=== PATIENT | female | born 1970 | race Caucasian/White ===

== ENCOUNTER → 2016-06-30 | Outpatient (CLI) | payer OTHER ==
--- NOTE | 2016-06-30 12:51 | MAMMOGRAPHY REPORT ---
BILATERAL DIGITAL SCREENING MAMMOGRAM TOMOSYNTHESIS WITH CAD: 06/30/2016 CLINICAL HISTORY: Routine screening. Patient has no complaints. TECHNIQUE: Breast tomosynthesis in addition to standard 2D mammography was performed. Current study was also evaluated with a Computer Aided Detection (CAD) system. COMPARISON: Comparison is made to exams dated: 06/28/2015 mammogram, 08/17/2014 mammogram, 08/11/2013 m ammogram, 08/09/2012 mammogram, 08/08/2011 mammogram, and 08/23/2009 mammogram - [facility] nt. BREAST COMPOSITION: The tissue of both breasts is heterogeneously dense, which may obscure small ma sses. FINDINGS: No suspicious masses, calcifications, or areas of architectural distortion are noted in e ither breast. There has been no significant interval change compared to prior exams. IMPRESSION: ACR BI-RADS CATEGORY 1: NEGATIVE There is no mammographic evidence of malignancy. A 1 year screening mammogram is recommended. The p atient will receive written notification of the results. Approximately 10% of breast cancers are not detected with mammography. A negative mammographic repor t should not delay biopsy if a clinically suggestive mass is present. Jennifer Wu M.D. /:06/30/2016 12:13:26 Jumpb[employer] Collar Baster: Demond DISLA(R)(M), [facility] letter sent: Normal 1/2 BI-RADS Code: ACR BI-RADS Category 1: Negative
== END | disposition home or self-care (01) ==
LOC: C.MAMM 09:26
PROVIDERS: ATTEND Obstetrics & Gynecology
DX: Z12.31 Encounter for screening mammogram for malignant neoplasm of breast (principal)

== ENCOUNTER → 2016-07-04 | Outpatient (CLI) | payer OTHER | END | disposition home or self-care (01) | LOC: C.PAPS 10:00 | PROVIDERS: ATTEND Obstetrics & Gynecology | DX: Z01.419 Encounter for gynecological examination (general) (routine) without abnormal findings (principal) ==

== ENCOUNTER → 2016-09-15 | Outpatient (CLI) | payer OTHER | END | disposition home or self-care (01) | LOC: C.PATHSPEC 14:51 | PROVIDERS: ATTEND Obstetrics & Gynecology | DX: N90.89 Other specified noninflammatory disorders of vulva and perineum (principal) ==

== ENCOUNTER → 2017-06-25 | Outpatient (CLI) | payer OTHER ==
[2017-06-25 13:05] LABS: HEMATOCRIT 40.2 % (37-47); HEMOGLOBIN 13.5 g/dL (12.0-16.0); MEAN CELL VOLUME 88.9 fL (80-100); MEAN CORPUSCULAR HEMOGLOBIN 29.9 pg (25-34); MEAN CORPUSCULAR HGB CONC 33.6 g/dl (32-36); MEAN PLATELET VOLUME 9.7 fL (7.4-10.4); PLATELET COUNT 480 K/uL (130-400); RED CELL DISTRIBUTION WIDTH CV 13.1 % (11.5-14.5); RED CELL DISTRIBUTION WIDTH SD 42.5 fL (36.4-46.3); WHITE BLOOD COUNT 9.57 K/uL (4.8-10.8)
[2017-06-25 14:04] LABS: HEMOGLOBIN A1C 5.7 % (4.5-5.6)
[2017-06-25 14:21] LABS: ALBUMIN 3.8 gm/dl (3.4-5.0); ALKALINE PHOSPHATASE 72 U/L (45-117); ALT/SGPT 20 U/L (12-78); AST/SGOT 17 U/L (15-37); BLOOD UREA NITROGEN 8 mg/dl (7-18); CALCIUM 8.6 mg/dl (8.5-10.1); CARBON DIOXIDE 24 mmol/L (21-32); CHOLESTEROL 311 mg/dl (0-200); CREATININE 0.69 mg/dl (0.60-1.20); GLUCOSE 93 mg/dl (70-99); LDL CHOLESTEROL CALCULATED 224 mg/dl; POTASSIUM 3.7 mmol/L (3.5-5.1); SODIUM 136 mmol/L (136-145); TOTAL PROTEIN 7.9 gm/dl (6.4-8.2)
== END | disposition home or self-care (01) ==
LOC: C.LABPVFM 10:10
PROVIDERS: ATTEND Family Medicine
DX: J45.909 Unspecified asthma, uncomplicated (principal)

== ENCOUNTER → 2017-09-24 | Outpatient (CLI) | payer OTHER ==
[2017-09-24 13:30] LABS: ALBUMIN 3.8 gm/dl (3.4-5.0); ALKALINE PHOSPHATASE 94 U/L (45-117); ALT/SGPT 23 U/L (12-78); AST/SGOT 17 U/L (15-37); BLOOD UREA NITROGEN 13 mg/dl (7-18); CALCIUM 8.9 mg/dl (8.5-10.1); CARBON DIOXIDE 24 mmol/L (21-32); CHOLESTEROL 176 mg/dl (0-200); CREATININE 0.72 mg/dl (0.60-1.20); GLUCOSE 108 mg/dl (70-99); HEMOGLOBIN A1C 5.9 % (4.5-5.6); LDL CHOLESTEROL CALCULATED 81 mg/dl; POTASSIUM 4.1 mmol/L (3.5-5.1); SODIUM 137 mmol/L (136-145)
== END | disposition home or self-care (01) ==
LOC: C.LABPVFM 08:48
PROVIDERS: ATTEND Family Medicine
DX: R73.09 Other abnormal glucose (principal); E78.5 Hyperlipidemia, unspecified

== ENCOUNTER 2018-08-30 10:08 | Inpatient (IN) ==
--- NOTE | 2018-08-12 14:30 | History and Physical Report ---
DATE OF ADMISSION: 08/12/2018 CHIEF COMPLAINT: Pelvic pain, urinary frequency, enlarging fibroids. HISTORY OF PRESENT ILLNESS: The patient is a 47-year-old nullip. Her general health is complicated by asthma, anxiety and ADHD. She has been on control pills for control of heavy bleeding and also for control. She was instructed to stop these over 2 weeks prior to surgery. She has been diagnosed with uterine fibroids 5 years ago. She has had yearly ultrasounds. They have showed a continued growth with the recent rapid increase in size of one of the fibroids up to almost 8 cm. Along with this increase in size, she has been experiencing progressive symptoms of pelvic pressure, pain and urinary frequency. She has a history of having had a large lipoma removed in the past and vulvar dysplasia. Presently she is being scheduled for total abdominal hysterectomy with preservation of her ovaries if possible. PAST MEDICAL HISTORY: History of asthma, history of ADHD and history of anxiety. ALLERGIES: She has no known drug allergies. PAST SURGICAL HISTORY: She had a history of a lipoma removal. 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 SOCIAL HISTORY: No smoking. No excessive alcohol intake. Works at home. FAMILY HISTORY: Mom is in her late 70s, father is mid 80s, they are both in good health. She has 1 brother age 49, has a history of asthma. REVIEW OF SYSTEMS: HEAD: No symptoms of frequent or severe headaches. EYES: No symptoms of blurred vision or double vision. EARS: No symptoms of frequent ear infections or difficulty hearing. PHYSICAL EXAMINATION: GENERAL: Well-developed, well-nourished 47-year-old white female, alert, oriented x3 and cooperative in no acute distress, appears stated age. EYES: Conjunctivae are pink. Sclerae white. No evidence of jaundice. EARS: Had normal light reflex bilaterally. NOSE: Had normal mucosa. Septum is midline. There were no polyps. THROAT: No erythema or evidence of infection. Teeth are in good state of repair. HEAD: Normocephalic, normal distribution of hair. NECK: Supple. Trachea midline. Thyroid is not enlarged. There is no adenopathy appreciated. Both carotids are of good intensity. CHEST: Clear to auscultation and percussion. ____ wheezes, rales or rhonchi appreciated. HEART: Regular rhythm. S1, S2 are normal. BREASTS: Normal. ABDOMEN: Soft and nontender. PELVIC: Revealed normal appearing cervix. Uterus was about 12-14 week size. MUSCULOSKELETAL: Revealed no calf tenderness. IMPRESSIONS TO THIS CASE: History of asthma, history of anxiety, history of ADHD and symptomatic uterine fibroids and documented recent enlargement of the fibroids.
--- NOTE | 2018-08-16 10:46 | PAT Medication Instructions ---
Medication Instructions Date of Service August 16, 2018 Home Medications Medication Instructions Recorded albuterol sulfate HFA 90 1 puff INHALATION Q6H PRN #6.7 gm 07/10/18 mcg/actuation aerosol inhaler fluticasone 250 mcg-salmeterol 50 1 inh INHALATION Q12H PRN #60 ea 07/10/18 mcg/dose blistr powdr for inhalation katiuskagest-eth.estradiol triphasic 1 tab PO DAILY #28 tab 07/10/18 50-30 (6)/75-40(5)/125-30(10) tablet albuterol sulfate HFA 90 mcg/actuation aerosol inhaler 1 puff INHALATION Q6H PRN cetirizine 10 mg tablet 10 mg PO DAILY PRN fexofenadine 60 mg tablet 60 mg PO DAILY PRN fluticasone 250 mcg-salmeterol 50 mcg/dose blistr powdr for inhalation 1 inh INHALATION Q12H PRN katiuskagest-eth.estradiol triphasic 50-30 (6)/75-40(5)/125-30(10) tablet 1 tab PO DAILY alcaftadine [Lastacaft] 1 drp OPHTHALMIC (EYE) DAILY PRN atomoxetine 60 mg PO QAM atorvastatin 20 mg PO BID bupropion HCl [Wellbutrin SR] 100 mg PO BID fluoxetine [Prozac] 20 mg PO QDD fluoxetine [Prozac] 40 mg PO QAM levocetirizine [Xyzal] 5 mg PO DAILY PRN montelukast 10 mg PO PM valacyclovir 1,000 mg PO Q12H PRN Continue as directed valacyclovir 1,000 mg PO Q12H PRN (if needed) ASK your prescriber and surgeon libaneth.estradiol triphasic 50-30 (6)/75-40(5)/125-30(10) tablet 1 tab PO DAILY DO NOT take the morning of surgery cetirizine 10 mg tablet 10 mg PO DAILY PRN fexofenadine 60 mg tablet 60 mg PO DAILY PRN atomoxetine 60 mg PO QAM levocetirizine [Xyzal] 5 mg PO DAILY PRN Take morning of surgery With a small sip of water, OTHERWISE NOTHING TO EAT OR DRINK AFTER MIDNIGHT: albuterol sulfate HFA 90 mcg/actuation aerosol inhaler 1 puff INHALATION Q6H PRN (use if needed; please bring with you to hospital day of surgery if possible) fluticasone 250 mcg-salmeterol 50 mcg/dose blistr powdr for inhalation 1 inh INHALATION Q12H PRN (if needed) alcaftadine [Lastacaft] 1 drp OPHTHALMIC (EYE) DAILY PRN (if needed) atorvastatin 20 mg PO BID bupropion HCl [Wellbutrin SR] 100 mg PO BID fluoxetine [Prozac] 40 mg PO QAM Other Notes If you have any questions please call us at [phone] or [phone] or [phone] or [phone]
--- NOTE | 2018-08-19 10:36 | Anesthesiology Consultation ---
Date of Service August 19, 2018 Assessment & Plan (1) Encounter for pre-operative examination: Check test AM DOS Chart Review Chart Review: Acceptable Risk for Surgery and Patient seen in Pre Admission Testing Teaching & Discussion Pre-Anesthesia Teaching/Discussion Notes: Instructed NPO after midnight before surgery,except medications with 15 cc of water. Medication instructions pro vided according to the PAT guidelines. History Surgery Operation Date: 08/30/18 11:30 Proposed Procedures p Total Abdominal Hysterectomy and Preserve Ovaries - Roberto Nice MD Height/Weight Height: 5 ft 4 in Weight: 75 kg Allergies Allergy/AdvReac Type Severity Reaction Status Date / Time No Known Allergies Allergy Verified 08/13/18 12:17 Medications Home Medications Medication Instructions Recorded Confirmed Last Taken albuterol sulfate HFA 90 1 puff INHALATION Q6H PRN #6.7 gm 07/10/18 08/13/18 Unknown mcg/actuation aerosol inhaler cetirizine 10 mg tablet 10 mg PO DAILY PRN #90 tab 07/10/18 08/13/18 Unknown fexofenadine 60 mg tablet 60 mg PO DAILY PRN tab 07/10/18 08/13/18 Unknown fluticasone 250 mcg-salmeterol 50 1 inh INHALATION Q12H PRN #60 ea 07/10/18 08/13/18 Unknown mcg/dose blistr powdr for inhalation alcaftadine [Lastacaft] 1 drp OPHTHALMIC (EYE) DAILY PRN 08/13/18 08/13/18 Unknown atomoxetine 60 mg PO QAM 08/13/18 08/13/18 Unknown atorvastatin 20 mg PO BID 08/13/18 08/13/18 Unknown bupropion HCl [Wellbutrin SR] 100 mg PO BID 08/13/18 08/13/18 Unknown fluoxetine [Prozac] 20 mg PO QDD 08/13/18 08/13/18 Unknown fluoxetine [Prozac] 40 mg PO QAM 08/13/18 08/13/18 Unknown levocetirizine [Xyzal] 5 mg PO DAILY PRN 08/13/18 08/13/18 Unknown montelukast 10 mg PO PM 08/13/18 08/13/18 Unknown valacyclovir 1,000 mg PO Q12H PRN 08/13/18 08/13/18 Unknown Past Medical History Medical History ADHD Anxiety Asthma controlled Hx of herpes simplex infection Hyperlipidemia Exercise / Class Metabolic Activity II 4-5 Yardwork/Stairs/Walk up hill Past Surgical History Surgical History History of surgery left thigh lipoma excision Hx of vaginal surgery right labial lesion excision: 04/11/18: LMA#4 at [facility] Past Anesthesia History No Hx of Anesthesia Complications and No Family Hx of Anesthesia Complications History of PONV No Hx of PONV and Hx of Motion Sickness (on boat rides) Social History Smoking Status: Never smoker Do You Dip or Chew Tobacco: No Hx Alcohol Use: No Hx Substance Use: No substance use type: does not use Review of Systems Occasional reflux. Patient denies chest pain, shortness of breath, dyspnea on exertion, cough, wheezing, palpitations. Physical Exam Vital Signs VITALS BP 122/92 P 97 TEMP 98.1 SP02 95%RA RESP 16 Patient advised to followup with PCP regarding elevated BP. PHYSICAL Full neck and c-spine range of motion. Full TMJ range of motion. TMD 3 finger breaths Mallampati Score 3 Dentition: intact, left lower side implant Lungs: clear throughout to auscultation Cardiac: regular rate and rhythm, no murmurs noted Spine: normal Carotid arteries: negative bruit Extremities: no edema Testing Laboratory Results 08/19/18 11:11 08/19/18 11:11 PT 10.2 Seconds (9.0-12.0) 08/19/18 11:11 INR 1.0 (0.9-1.1) 08/19/18 11:11 APTT 28.8 Seconds (21.0-31.0) 08/19/18 11:11 Blood Type A Positive 08/19/18 11:11 Antibody Screen NEGATIVE 08/19/18 11:11
[2018-08-19 12:19] LABS: Basophils # (auto) 0.02 K/uL (0-0.2); Basophils % (auto) 0.2 %; Eosinophils # (auto) 0.35 K/uL (0-0.5); Eosinophils % (auto) 3.7 %; Hematocrit (blood only) 40.8 % (37-47); Hemoglobin 13.4 g/dL (12.0-16.0); Immature Granulocytes # (auto) 0.01 K/uL (0.00-0.02); Immature Granulocytes % (auto) 0.1 %; Lymphocytes # (auto) 3.07 K/uL (1.2-3.4); Lymphocytes % (auto) 32.2 %; Mean Corpuscular Hgb Conc 32.8 g/dL (32-36); Mean Corpuscular Volume 90.9 fL (80-100); Monocytes # (auto) 0.36 K/uL (0.11-0.59); Monocytes % (auto) 3.8 %; Neutrophils # (auto) 5.72 K/uL (1.4-6.5); Platelet Count 448 K/uL (130-400); RDW Coefficient of Variation 13.4 % (11.5-14.5); RDW Standard Deviation 44.2 fL (36.4-46.3); Red Blood Count 4.49 M/uL (4.2-5.4); White Blood Count 9.53 K/uL (4.8-10.8)
[2018-08-19 12:35] LABS: Partial Thromboplastin Ratio 1.1; Partial Thromboplastin Time 28.8 Seconds (21.0-31.0); Prothrombin Time 10.2 Seconds (9.0-12.0)
[2018-08-19 14:36] LABS: BUN Creatinine Ratio 9.5 (10-20); Creatinine Clr Calc Pharmacy 93.7 ml/min; Est GFR (Non-African American) 98.3; Potassium 3.6 mmol/L (3.5-5.1)
[~2018-08-30 10:08] MED LIST: LR 15ML/HR IV SCH
[2018-08-30] MEDS ORDERED: DEXAMETHASONE SOD INJ 4 MG/ML VIAL ONE (10:56)
[2018-08-30] MEDS ORDERED: ONDANSETRON INJ 2 MG/ML 2 ML VIAL ONE ×2 (10:56→14:01)
[2018-08-30] MEDS ORDERED: LIDOCAINE HCL 2% 2 ML VIAL/AMP(20MG/ML) INFIL ONE (10:56)
[2018-08-30] MEDS ORDERED: MIDAZOLAM HCL 1 MG/ML 2ML VIAL ONE ×2 (10:56→11:08)
[2018-08-30] MEDS ORDERED: fentaNYL citrate 100 MCG/2 ML VIAL ONE ×2 (10:56→13:43)
[2018-08-30] MEDS ORDERED: PROPOFOL IV EMULSION 10 MG/ML 20 ML VIAL IV ONE (10:56)
[2018-08-30] MEDS ORDERED: ROCURONIUM BROMIDE 10 MG/ML 5 ML VIAL ONE ×3 (10:56→14:09)
[2018-08-30] MEDS ORDERED: MoRPHine SULFATE PF 1 MG/ML 10 ML AMP/VIAL ONE (10:57)
--- NOTE | 2018-08-30 11:11 | History & Physical Bridge Note ---
Date of Service August 30, 2018 History & Physical Bridge Note I have examined the patient, reviewed the History & Physical and in the interval since the performance of the History & Physical I have noted the following changes of clinical significance: no changes noted
[2018-08-30] MEDS ORDERED: BUPIVACAINE 0.5 % 5 MG/1 ML PF 10ML VIAL ONE (11:13)
--- NOTE | 2018-08-30 14:45 | Post Operative Brief Note ---
Immediate Post Op Note v1 Date of Surgery August 30, 2018 Pre & Post Diagnosis Operation Date: 08/30/18 11:30 Pre-Op Diagnosis: Fibroid Uterus Post-Op Diagnosis: Fibroid Uterus Procedure Operation Date: 08/30/18 11:30 Actual Procedures p Total Abdominal Hysterectomy and Preserve Ovaries(Not Applicable) - Roberto Nice MD Surgeon Roberto Nice MD [employer] Specialist Dr Santos Estimated Blood Loss 50 Findings Consistent with Post-Op Diagnosis Fluids 1500 ml Specimens fibroid uterus Drains Chen Catheter and Other (latrice drain with safety pin) Anesthesia Type General Complications none Disposition Accompanied Patient To Recovery: No Disposition: Recovery Room
[2018-08-30] MEDS ORDERED: KETOROLAC 30 MG/ML VIAL IV PRN (14:46)
[2018-08-30] MEDS ORDERED: MEPERIDINE HCL 50 MG/ML CARP IV PRN (14:46)
[2018-08-30] MEDS ORDERED: SENNA 8.6 MG TAB PO PRN (14:51)
[2018-08-30] MEDS ORDERED: ONDANSETRON INJ 2 MG/ML 2 ML VIAL IV PRN ×3 (14:51→16:44)
[2018-08-30] MEDS ORDERED: PROMETHAZINE HCL 25 MG in SODIUM CHLORIDE 0.9% 50 ML IV PRN ×2 (14:51→16:44)
[2018-08-30] MEDS ORDERED: BISACODYL 10 MG SUPP PR PRN (14:51)
[2018-08-30] MEDS ORDERED: MAGNESIUM HYDROXIDE SUSP 30 ML UDC PO PRN (14:51)
[2018-08-30] MEDS ORDERED: ATROPINE SULFATE 0.1 MG/ML 10ML SYR IV PRN (15:20)
[2018-08-30] MEDS ORDERED: fentaNYL citrate 100 MCG/2 ML VIAL IV PRN (15:20)
[2018-08-30] MEDS ORDERED: PROMETHAZINE HCL 12.5 MG in SODIUM CHLORIDE 0.9% 50 ML IV PRN (15:20)
[2018-08-30] MEDS ORDERED: ePHEDrine sulfate 50 MG/ML AMP IV PRN ×2 (15:20→16:44)
[2018-08-30] MEDS ORDERED: HYDROmorphone INJ 2 MG/ML SYR/VIAL IV PRN (15:20)
--- NOTE | 2018-08-30 15:29 | Anesthesiology Progress Note ---
Date of Service August 30, 2018 Anesthesia Post Procedure Vital Signs Vital Signs: Temp Pulse Pulse Resp BP Pulse Ox 08/30/18 15:10 76 14 148/95 H 99 08/30/18 15:00 83 12 153/87 H 100 08/30/18 14:50 36.4 C L 80 12 147/85 H 100 08/30/18 10:58 36.7 C 102 H 18 176/102 H 99 Transfer of Care Handoff Completed per policy Notes Mental Status: alert / awake / arousable and participated in evaluation Nausea / Vomiting: adequately controlled Pain: adequately controlled Airway Patency, RR, SpO2: stable & adequate BP & HR: stable & adequate Hydration State: stable & adequate Neuraxial Anesthesia: was administered and sensory block is resolving Anesthetic Complications: no major complications apparent and Pt Satisfied with anesthetic care
[2018-08-30] MEDS ORDERED: LACTATED RINGER'S 500 ML IV PRN (16:44)
[2018-08-30] MEDS ORDERED: NALOXONE HCL 1 MG in SODIUM CHLORIDE 0.9% 1000ML 1,000 ML IV PRN (16:44)
[2018-08-30] MEDS ORDERED: NALOXONE HCL 0.08 MG in SYRINGE 1.8 ML IV PRN (16:44)
[2018-08-30] MEDS ORDERED: NALOXONE HCL 0.4 MG/1 ML VIAL/CARP IV PRN (16:44)
[2018-08-30] MEDS ORDERED: DiphenhydrAMINE HCL 50 MG/ML VIAL IV PRN (16:44)
[2018-08-30] MEDS ORDERED: MoRPHine SULFATE 2 MG/ML CARP IV PRN (16:44)
[2018-08-30] MEDS ORDERED: MoRPHine SULFATE PF 1 MG/ML 10 ML AMP/VIAL INT SPINAL ONE (16:44)
[2018-08-30] MEDS ORDERED: ACETAMINOPHEN 1000 MG/100 ML IV IV PRN (16:45)
[2018-08-30] MEDS ORDERED: SODIUM CHLORIDE 0.9% 1000ML 1,000 ML IV SCH (16:45)
[2018-08-30] MEDS ORDERED: NO NARCOTICS OR SEDATIVES SCH (16:45)
[2018-08-30] MEDS ORDERED: DC INTRASPINAL MORPHINE SCH (16:45)
[2018-08-30] MEDS: KETOROLAC 30 MG/ML VIAL IV PRN (18:56)
[2018-08-30] MEDS ORDERED: FLUTICASONE/SALMETEROL 250/50 (ADVAIR) 14 PUFF/1 INHALER INH PRN (21:25)
[2018-08-30] MEDS: D5W AND LACTATED RINGERS 1,000 ML IV SCH (22:08)
[2018-08-30] MEDS: NALBUPHINE HCL INJ 10 MG/ML AMP IV PRN (23:25)
--- NOTE | 2018-08-30 23:35 | Operative Report ---
DATE OF OPERATION: 08/30/2018 PROCEDURE: Total abdominal hysterectomy. INDICATIONS FOR SURGERY: Pelvic pain, enlarging fibroids. PREOPERATIVE DIAGNOSIS: Pelvic pain secondary to large fibroids. POSTOPERATIVE DIAGNOSIS: Multiple large fibroids. SURGEON: Pauline Nice MD. SUPPORT SERVICE TECH: Cody Santos MD. ESTIMATED BLOOD LOSS: 50 mL. ANESTHESIA: General with spinal narcotics. OPERATIVE FINDINGS AND PROCEDURE: The patient was given spinal narcotics and general anesthesia. A Chen catheter was inserted into the bladder, connected to gravity drainage. Compression stockings were applied. Lower abdomen was painted with an alcohol-based sterilizing solution, draped in the usual fashion. A Pfannenstiel incision was made and carried down to the anterior fascia by sharp dissection. Hemostasis was secured by electrocauterization. Fascia was incised transversely from the underlying muscle by blunt and sharp dissection. Recti muscles were in the midline exposing the peritoneum, which was carefully raised and entered. An O'Ernie-O'Justin self-retraining retractor was inserted into the abdominal incision and several moist laparotomy packs were used to retract the intestines to provide adequate exposure of the pelvic cavity. The anatomy of the uterus was grossly distorted by multiple fibroids, some of them as large as 8 cm. Fibroid uterus was brought out through the incision. The round ligaments on either side were located and then cut away from the uterus by doubly ligating the distal portion of the round ligaments and singly ligating the proximal portion. Then, the ovarian ligament and tube on either side was isolated by punching through the posterior leaf of the broad ligament and once again placing 3 ties, 2 distal and 1 proximal, and cutting the adnexa away from the uterus. Uterine vessels were then skeletonized, doubly clamped with a curved Sariah. This was done high up on the cervix, cut and then doubly ligated with a chromic gut suture and also cauterized. Following this, the cardinal ligaments were cut by sliding off the cervix with a curved Sariah, cutting with a stump and ligating with a transfixion suture of chromic catgut. This was done in 3 steps because of the length of the cardinal ligament. Cervix was then shelled out and the vaginal cuff entered. The angles of the vaginal cuff were suture ligated to the stumps of the cardinal ligaments on each side with a chromic gut suture. Then, the anterior and posterior vaginal mucosa was approximated on each side with a difcum-uy-hyewd suture. The mid portion of the vaginal cuff was whipstitched open with a continuous chromic gut suture. A Holbrook drain with a safety pin was placed into the vagina, the other end out into the cul-de-sac. Round ligaments were brought down, tied into the vaginal cuff for support. I then used 3-0 chromic and I reperitonealized the vaginal edges tacking the ovaries to the round ligaments and keeping them out of the pelvis and up along the side. With this, I approximated front to back. Once everything was reperitonealized and hemostasis was excellent, the pelvis was washed, packs were removed. Instrument count was good. Careful anatomical approximation of the anterior abdominal wall was performed. Peritoneum was closed with continuous chromic mattress suture. Recti muscles were approximated with interrupted [id number] suture of chromic catgut. The fascia was closed with continuous interlocking suture of Vicryl on each side, tied in the midline. SubQ was approximated with continuous plain and skin edges were approximated with staple clips. I attest to the content of the Intraoperative Record and any orders documented therein. Any exception s are noted below.
[2018-08-31] MEDS: KETOROLAC 30 MG/ML VIAL IV PRN ×2 (01:31→08:31)
[2018-08-31] MEDS: NALBUPHINE HCL INJ 10 MG/ML AMP IV PRN (06:12)
[2018-08-31] MEDS: D5W AND LACTATED RINGERS 1,000 ML IV SCH (06:14)
[2018-08-31 08:12] LABS: Basophils # (auto) 0.01 K/uL (0-0.2); Basophils % (auto) 0.1 %; Eosinophils # (auto) 0.01 K/uL (0-0.5); Eosinophils % (auto) 0.1 %; Hematocrit (blood only) 37.1 % (37-47); Hemoglobin 11.8 g/dL (12.0-16.0); Immature Granulocytes # (auto) 0.04 K/uL (0.00-0.02); Immature Granulocytes % (auto) 0.3 %; Lymphocytes # (auto) 2.13 K/uL (1.2-3.4); Lymphocytes % (auto) 16.7 %; Mean Corpuscular Hgb Conc 31.8 g/dL (32-36); Mean Corpuscular Volume 90.7 fL (80-100); Monocytes # (auto) 0.74 K/uL (0.11-0.59); Monocytes % (auto) 5.8 %; Neutrophils # (auto) 9.84 K/uL (1.4-6.5); Platelet Count 380 K/uL (130-400); RDW Coefficient of Variation 12.7 % (11.5-14.5); RDW Standard Deviation 42.1 fL (36.4-46.3); Red Blood Count 4.09 M/uL (4.2-5.4); White Blood Count 12.77 K/uL (4.8-10.8)
[2018-08-31] MEDS: ATOMOXETINE HCL 25 MG CAPSULE PO SCH (08:48)
[2018-08-31] MEDS: BuPROPion SR 100 MG TABCR PO SCH (08:49)
[2018-08-31] MEDS ORDERED: ATOMOXETINE HCL 60 MG CAPSULE PO SCH (09:00)
[2018-08-31] MEDS ORDERED: COUGH DROP (SUGAR FREE) LOZ 24 LOZ/1 BOX BUCCAL ONE (09:18)
[2018-08-31] MEDS: FLUOXETINE HCL 20 MG CAP PO SCH ×2 (09:53→13:39)
--- NOTE | 2018-08-31 12:35 | Obstetrical Progress Note ---
Date of Service August 31, 2018 Physical Exam Physical Exam: abdomen soft and non tender incision is clean and dry bandage removed vaginal bleeding scant hgb 11.4 no calf tenderness bowel sounds present but hypoactive patient is ambulating Results & Data Vital Signs (Past 12 Hours) Vital Signs Temp Pulse Pulse Resp BP Pulse Ox Pulse Ox 08/31/18 11:50 36.8 C 92 H 18 138/80 95 08/31/18 10:45 18 99 08/31/18 09:45 20 98 08/31/18 08:45 18 97 08/31/18 08:00 18 100 08/31/18 07:20 36.6 C 88 18 141/81 H 98 08/31/18 06:19 18 96 08/31/18 05:00 16 96 08/31/18 03:50 36.8 C 98 H 16 134/76 99 99 08/31/18 02:51 16 95 08/31/18 01:35 18 98
[2018-08-31] MEDS: OXYCODONE/ACETAMINOPHEN 5mg/325mg TAB PO PRN ×2 (13:37→18:21)
[2018-08-31] MEDS: IBUPROFEN 600 MG TAB PO PRN (13:38)
[2018-08-31] MEDS ORDERED: MONTELUKAST SODIUM 10 MG TABLET PO SCH (21:00)
[2018-09-01] MEDS: IBUPROFEN 600 MG TAB PO PRN ×3 (00:20→11:20)
[2018-09-01 06:59] LABS: Basophils # (auto) 0.02 K/uL (0-0.2); Basophils % (auto) 0.2 %; Eosinophils # (auto) 0.29 K/uL (0-0.5); Eosinophils % (auto) 2.4 %; Hematocrit (blood only) 34.9 % (37-47); Hemoglobin 11.2 g/dL (12.0-16.0); Immature Granulocytes # (auto) 0.02 K/uL (0.00-0.02); Immature Granulocytes % (auto) 0.2 %; Lymphocytes # (auto) 3.88 K/uL (1.2-3.4); Lymphocytes % (auto) 32.6 %; Mean Corpuscular Hgb Conc 32.1 g/dL (32-36); Mean Corpuscular Volume 93.6 fL (80-100); Mean Platelet Volume 10.1 fL (7.4-10.4); Monocytes # (auto) 0.62 K/uL (0.11-0.59); Monocytes % (auto) 5.2 %; Neutrophils # (auto) 7.07 K/uL (1.4-6.5); Neutrophils % (auto) 59.4 %; Platelet Count 329 K/uL (130-400); RDW Standard Deviation 44.5 fL (36.4-46.3); Red Blood Count 3.73 M/uL (4.2-5.4)
[2018-09-01] MEDS: ATOMOXETINE HCL 25 MG CAPSULE PO SCH (09:15)
[2018-09-01] MEDS: FLUOXETINE HCL 20 MG CAP PO SCH ×2 (09:16→11:21)
[2018-09-01] MEDS: BuPROPion SR 100 MG TABCR PO SCH (09:47)
--- NOTE | 2018-09-01 10:18 | Obstetrical Progress Note ---
Date of Service September 01, 2018 Physical Exam Physical Exam: abdomen soft and non tender incision is clean and dry vaginal bleeding scant latrice with safety pin removed no calf tenderness ambulating well
--- NOTE | 2018-09-01 11:38 | Discharge Summary ---
HISTORY OF PRESENT ILLNESS AND HOSPITAL COURSE: The patient is a 47-year-old nullip, has a history of removal of large lipoma from her upper left thigh, history of removal of vulvar dysplasia. She basically had fibroids for several years; however, over the last year or so, they have gotten significantly larger and have caused a lot of symptoms of pelvic pain, discomfort, dyspareunia. She was admitted for total abdominal hysterectomy. On the day of admission, she was taken to the OR where she underwent total abdominal hysterectomy, removal of a large fibroid uterus, suspension of vaginal cuff, a drain placed in the cuff. Ovaries were preserved and they were tacked out of the pelvis up on the lateral pelvic wall. Postoperatively, the patient did well. She remained afebrile. Her preoperative hemoglobin was 13.4. Postoperative hemoglobin was 11.2. At the time of discharge, she was ambulating well, eating well. A Ulices drain with safety pin had been removed. Her pain was well controlled with a combination of Percocet and Motrin. She was given the usual instructions to call the office, if temperature over 100 or any abnormal bleeding. Otherwise, return to the office in about 5 days for removal of arleen.
== END 2018-09-01 11:55 | disposition home or self-care (01) | DRG 743 ==
LOC: ASU 10:08 → 4N 14:46 → 4S2 08-31 15:26